=== PATIENT | female | born 1990 | race Caucasian/White ===

== ENCOUNTER 2025-06-12 09:51 | Inpatient (IN) | payer OTHER, SELFPAY ==
[2025-06-12 10:06] VITALS: BP 110/88; BMI 31.0
[2025-06-12 10:44] LABS: Hematocrit 34.0 % (37.0-47.0); Hemoglobin 11.4 g/dL (12.0-16.0); Mean Corp Hgb Conc. 33.5 g/dL (33.0-37.0); Mean Corpuscular Volume 82.9 fL (81.0-99.0); Platelet Count 280 10^3/uL (130-400); Red Cell Dist. Width 14.3 % (11.5-14.5)
[2025-06-12] MEDS: TYLENOL 975 MG PO (11:37)
[2025-06-12] MEDS: BICITRA 30 ML PO (11:37)
[2025-06-12] MEDS: GENTAMICIN 60 MG IV (11:38)
[2025-06-12] MEDS: BENADRYL 25 MG IV (18:11)
[2025-06-12] MEDS: TORADOL 15 MG IV (20:36)
[2025-06-12] MEDS: COLACE 100 MG PO (20:36)
[2025-06-13] MEDS: TORADOL 15 MG IV ×3 (02:36→14:32)
[2025-06-13 04:42] LABS: Hematocrit 30.7 % (37.0-47.0); Hemoglobin 10.3 g/dL (12.0-16.0); Mean Corp Hgb Conc. 33.6 g/dL (33.0-37.0); Mean Corpuscular Volume 84.1 fL (81.0-99.0); Platelet Count 292 10^3/uL (130-400); Red Cell Dist. Width 14.2 % (11.5-14.5)
[2025-06-13] MEDS: PRENATAL PLUS 1 TABLET PO (08:24)
[2025-06-13] MEDS: COLACE 100 MG PO ×2 (08:28→21:05)
--- NOTE | 2025-06-13 10:01 | W.PN.ANS.POP ---
Anesthesia Post Operative
- Anesthesia Post Op Note
Vital Signs Stable-See Nursing Note: Yes
Airway Patent: Yes
Adequate Pain Control: Yes
Change in Mental Status: No
Current Postoperative Nausea & Vomiting: No
Anesthesia Complications: No
General Anesthetic Recall: No
Unplanned Admission: No
Post Op Hydration Adequate: Yes
[2025-06-13] MEDS: MOTRIN 600 MG PO (21:04)
[2025-06-13] MEDS: TYLENOL 650 MG PO (21:05)
[2025-06-14] MEDS: TYLENOL 650 MG PO (03:06)
[2025-06-14] MEDS: MOTRIN 600 MG PO ×2 (03:06→08:25)
[2025-06-14] MEDS: PRENATAL PLUS 1 TABLET PO (08:25)
[2025-06-14] MEDS: COLACE 100 MG PO (08:25)
[2025-06-16 13:35] LABS: Syphilis/T. pallidum Ab Reflex Negative (Negative)
== END 2025-06-14 11:37 | disposition home or self-care (01) | DRG 788 ==
LOC: LDRP 09:51
PROVIDERS: ADMITTING PHYSICIAN Obstetrics & Gynecology
PROC: 10D00Z1 Extraction of Products of Conception, Low, Open Approach (ICD-10-PCS; 2025-06-12)
DX: O34.211 Maternal care for low transverse scar from previous cesarean delivery (principal); Z3A.39 39 weeks gestation of pregnancy; Z37.0 Single live birth; K66.0 Peritoneal adhesions (postprocedural) (postinfection)
CPT/HCPCS: 36415; 85027; 86780; 86850; 86870; 86900; 86901; 86920; 86922; 88307